=== PATIENT | male | born 1975 | race Caucasian/White ===

== ENCOUNTER 2021-05-17 09:54 | Emergency (ER) | payer MEDICARE, MEDICAID ==
[~2021-05-17] VITALS: Ht 175 cm; Wt 72.0 kg
[~2021-05-17 09:54] MED LIST: LORA10TA7 PO
--- NOTE | 2021-05-17 11:02 | ED Syncope ---
General Chief Complaint: Dizziness/Syncope Stated Complaint: SYNCOPE Nursing Triage Note: PT WAS AT THE [employer] AND PASSED OUT. PT DOES NOT REMEMBER PASSING OUT. PT IS A RESIDENT AT [facility] AND HAS A [employer]. Source of Information: Patient Exam Limitations: No Limitations History of Present Illness Date Seen by Provider: May 17, 2021 Time Seen by Provider: 10:59 Initial Comments To ER with c/o syncope. Pt reportedly walks all over [place] and was near the [employer] store when he had a witnessed syncopal episode. He does not recall it. Ems started IV, initiated IV fluids, and transported here. At the time of my exam patient states that he was just walking feeling fine when an ambulance showed up to pick him up. He begins laughing and states that he is not sure why he is here. He states he feels perfectly fine and has never been sick. He does not recall passing out. Timing/Prior Episodes: No Prior History Precipitating Factors: None Current Symptoms: Back to Normal Allergies and Home Medications Allergies Coded Allergies: No Known Drug Allergies (Unverified , 08/22/14) Home Medications Loratadine 10 Mg Tablet, 10 MG PO DAILY, (Reported) Patient Home Medication List Home Medication List Reviewed: Yes Review of Systems Constitutional: see HPI EENTM: see HPI Respiratory: no symptoms reported Cardiovascular: no symptoms reported Genitourinary: no symptoms reported Musculoskeletal: no symptoms reported Skin: no symptoms reported Psychiatric/Neurological: No Symptoms Reported Past Ytzzxth-Wqwcix-Uhasng Hx Patient Social History Smoking Status: Current Everyday Smoker Use of E-Cig and/or Vaping Toni: Never a User Substance use?: No Seasonal Allergies Seasonal Allergies: Yes Past Medical History Reproductive Disorders: No Physical Exam Vital Signs Vital Signs - First Documented 05/17/21 09:54 Temp 37.2 Pulse 73 Resp 16 B/P (MAP) 136/89 (105) Pulse Ox 100 O2 Delivery Room Air Capillary Refill : Less Than 3 Seconds Height, Weight, BMI Height: 5'9" Weight: 130lbs. oz. 58.400157ec; 23.00 BMI Method:Stated General Appearance: No Apparent Distress, WD/WN, Thin, Other (Alert and oriented, very pleasant, laughing and joking with me. Hemodynamically stable.) HEENT: PERRL/EOMI, TMs Normal Neck: Full Range of Motion, Normal Inspection Respiratory: Normal Breath Sounds, No Accessory Muscle Use, No Respiratory Distress Gastrointestinal: Normal Bowel Sounds, Non Tender, Soft Extremities: Normal Capillary Refill, Normal Inspection Neurologic/Psychiatric: Alert, Oriented x3 Cranial Nerves: Normal Hearing, Normal Speech, PERRL Coordination/Gait: Normal Gait Motor/Sensory: No Motor Deficit Skin: Normal Color, Warm/Dry Progress/Results/Core Measures Results/Orders Lab Results Laboratory Tests Test 05/17/21 11:01 Range/Units White Blood Count 6.9 4.3-11.0 10^3/uL Red Blood Count 5.29 4.30-5.52 10^6/uL Hemoglobin 16.0 13.3-17.7 g/dL Hematocrit 48 40-54 % Mean Corpuscular Volume 90 80-99 fL Mean Corpuscular Hemoglobin 30 25-34 pg Mean Corpuscular Hemoglobin Concent 34 32-36 g/dL Red Cell Distribution Width 13.4 10.0-14.5 % Platelet Count 151 130-400 10^3/uL Mean Platelet Volume 10.4 9.0-12.2 fL Immature Granulocyte % (Auto) 0 % Neutrophils (%) (Auto) 69 42-75 % Lymphocytes (%) (Auto) 20 12-44 % Monocytes (%) (Auto) 9 0-12 % Eosinophils (%) (Auto) 1 0-10 % Basophils (%) (Auto) 1 0-10 % Neutrophils # (Auto) 4.8 1.8-7.8 10^3/uL Lymphocytes # (Auto) 1.4 1.0-4.0 10^3/uL Monocytes # (Auto) 0.6 0.0-1.0 10^3/uL Eosinophils # (Auto) 0.1 0.0-0.3 10^3/uL Basophils # (Auto) 0.0 0.0-0.1 10^3/uL Immature Granulocyte # (Auto) 0.0 0.0-0.1 10^3/uL Sodium Level 140 135-145 MMOL/L Potassium Level 3.8 3.6-5.0 MMOL/L Chloride Level 106 98-107 MMOL/L Carbon Dioxide Level 26 21-32 MMOL/L Anion Gap 8 5-14 MMOL/L Blood Urea Nitrogen 4 L 7-18 MG/DL Creatinine 0.89 0.60-1.30 MG/DL Estimat Glomerular Filtration Rate 92 BUN/Creatinine Ratio 4 Glucose Level 83 70-105 MG/DL Calcium Level 9.1 8.5-10.1 MG/DL Corrected Calcium 9.2 8.5-10.1 MG/DL Total Bilirubin 0.7 0.1-1.0 MG/DL Aspartate Amino Transf (AST/SGOT) 14 5-34 U/L Alanine Aminotransferase (ALT/SGPT) 15 0-55 U/L Alkaline Phosphatase 82 40-136 U/L Total Protein 6.3 L 6.4-8.2 GM/DL Albumin 3.9 3.2-4.5 GM/DL My Orders Orders - DOMINIQUE NEWMAN APRN Cbc With Automated Diff (05/17/21 10:57) Comprehensive Metabolic Panel (05/17/21 10:57) Ua Culture If Indicated (05/17/21 10:57) Ed Iv/Invasive Line Start (05/17/21 10:57) Chest 1 View, Ap/Pa Only (05/17/21 10:57) Ct Head Wo (05/17/21 10:57) Ekg Tracing (05/17/21 10:57) Vital Signs/I&O 05/17/21 09:54 Temp 37.2 Pulse 73 Resp 16 B/P (MAP) 136/89 (105) Pulse Ox 100 O2 Delivery Room Air Blood Pressure Mean: 105 Diagnostic Imaging Diagonstic Imaging: Xray, CT Plain Films/CT/US/NM/MRI: chest Comments cxr clear. awaiting ct read. Reviewed: Reviewed by Me Departure Communication (Admissions) Family Conversation EKG shows sinus rhythm rate of [address] segment elevation or depression no ectopy NAME: LAURA SOLITARIO [facility] REC#: [id number] PT STATUS: REG ER : 1975 PHYSICIAN: DOMINIQUE NEWMAN APRN ADMIT DATE: 05/17/21/ER Draft Date of Exam:05/17/21 CT HEAD WO PROCEDURE: CT head without contrast. TECHNIQUE: Multiple contiguous axial images were obtained through the brain without the use of intravenous contrast. Auto Exposure Controls were utilized during the CT exam to meet ALARA standards for radiation dose reduction. INDICATION: Syncope. COMPARISON: Comparison is made with prior head CT from 08/22/2014. FINDINGS: The ventricles and sulci are within normal limits. No sulcal effacement or midline shift is identified. No acute intra-axial or extra-axial hemorrhage is detected. Cisterns are patent. Visualized paranasal sinuses are clear. IMPRESSION: No acute intracranial process is detected. Dictated on workstation # [id number] Dict: 05/17/21 1127 Trans: 05/17/21 1133 [id number] Interpreted by: SCOTTIE AVILES MD Electronically signed by: Impression Primary Impression: Syncope Disposition: 01 HOME, SELF-CARE Condition: Stable Departure-Patient Inst. Decision time for Depature: 11:02 Referrals: NO,LOCAL PHYSICIAN (PCP) Primary Care Physician Patient Instructions: Syncope (Fainting) (DC) DOMINIQUE NEWMAN SAP TRAINER May 17, 2021 11:02
[2021-05-17 11:04] LABS: BASOPHILS % (AUTO) 1 % (0-10); EOSINOPHILS # (AUTO) 0.1 10^3/uL (0.0-0.3); EOSINOPHILS % (AUTO) 1 % (0-10); HEMATOCRIT 48 % (40-54); LYMPHOCYTES # (AUTO) 1.4 10^3/uL (1.0-4.0); LYMPHOCYTES % (AUTO) 20 % (12-44); MEAN CORPUSCULAR HEMOGLOBIN 30 pg (25-34); MEAN CORPUSCULAR HGB CONC 34 g/dL (32-36); MEAN CORPUSCULAR VOLUME 90 fL (80-99); MEAN PLATELET VOLUME 10.4 fL (9.0-12.2); MONOCYTES # (AUTO) 0.6 10^3/uL (0.0-1.0); MONOCYTES % (AUTO) 9 % (0-12); NEUTROPHILS # (AUTO) 4.8 10^3/uL (1.8-7.8); NEUTROPHILS % (AUTO) 69 % (42-75); PLATELET COUNT 151 10^3/uL (130-400); WHITE BLOOD COUNT 6.9 10^3/uL (4.3-11.0)
[2021-05-17 11:07] LABS: ALBUMIN 3.9 GM/DL (3.2-4.5); POTASSIUM 3.8 MMOL/L (3.6-5.0)
[2021-05-17 11:08] LABS: CALCIUM 9.1 MG/DL (8.5-10.1)
[2021-05-17 11:09] LABS: TOTAL PROTEIN 6.3 GM/DL (6.4-8.2)
[2021-05-17 11:11] LABS: BILIRUBIN,TOTAL 0.7 MG/DL (0.1-1.0)
[2021-05-17 11:13] LABS: CREATININE SERUM 0.89 MG/DL (0.60-1.30)
--- NOTE | 2021-05-17 11:24 | Diagnostic Imaging Report ---
INDICATION: Passed out. COMPARISON: None. FINDINGS: A single view of the chest demonstrates clear lungs bilaterally. The heart is normal. There is no pneumothorax or effusion. The osseous structures are stable. IMPRESSION: Negative chest. Dictated by: Dictated on workstation # [id number]
--- NOTE | 2021-05-17 11:33 | Diagnostic Imaging Report ---
PROCEDURE: CT head without contrast. TECHNIQUE: Multiple contiguous axial images were obtained through the brain without the use of intravenous contrast. Auto Exposure Controls were utilized during the CT exam to meet ALARA standards for radiation dose reduction. INDICATION: Syncope. COMPARISON: Comparison is made with prior head CT from 08/22/2014. FINDINGS: The ventricles and sulci are within normal limits. No sulcal effacement or midline shift is identified. No acute intra-axial or extra-axial hemorrhage is detected. Cisterns are patent. Visualized paranasal sinuses are clear. IMPRESSION: No acute intracranial process is detected. Dictated by: Dictated on workstation # [id number]
[2021-05-17 12:35] VITALS: BP 125/83
== END 2021-05-17 12:32 | disposition home or self-care (01) ==
LOC: EDUNIT# 09:54 → ER 10:04
DX: R55 Syncope and collapse (principal); F17.200 Nicotine dependence, unspecified, uncomplicated
CPT/HCPCS: 36415; 70450; 71045; 80053; 85025; 93005

== ENCOUNTER 2023-03-15 17:10 | Emergency (ER) | payer MEDICARE, MEDICAID ==
[~2023-03-15] VITALS: Ht 175 cm; Wt 59.0 kg
[2023-03-15] MEDS ORDERED: NS IV 1000 ML 1,000 ML IV STA (17:42)
--- NOTE | 2023-03-15 17:47 | ED Neurological Problem ---
General Chief Complaint: Neurological Problems Stated Complaint: SEIZURE Nursing Triage Note: PT AMB TO [facility] 10 PT STATES HAD POSSIBLE SEIZURE TODAY AT APPROX 1600. REFUSED EMS TRANSPORT. BYSTANDER STATES PT UNRESPONSIVE, WEAK PULSE, AND HAND SHAKING. PT AT THIS X IS ALERT AND ORIENTED AT THIS X. HAS NO SEIZURE HX Source: patient Exam Limitations: no limitations History of Present Illness Date Seen by Provider: Mar 15, 2023 Time Seen by Provider: 17:44 Initial Comments Patient is a 47-year-old male who presents to the ED with a potential seizure. Around 4 PM patient was sitting in a chair at [facility]. Witness states patient was smoking a cigarette. Patient hand started shaking bilateral. Patient was unarousable. This lasted for about 5 minutes after calling his name several times. Patient had a week pulse. Patient became alert but was disoriented. EMS was contacted. States he had a similar episode 2 weeks ago lasting about the same amount of time. No known history of seizures. Patient on arrival has no current complaint. Denies headache, dizziness, visual changes, sore throat, chest pain, cough, shortness of breath, fever, chills, neck pain. No known cardiac history. Denies of any current medication. No recent travels. They denied of any diffuse body convulsions Allergies and Home Medications Allergies Coded Allergies: No Known Drug Allergies (Unverified , 08/22/14) Patient Home Medication List Home Medication List Reviewed: Yes Cephalexin (Cephalexin) 500 Mg Tablet, 500 MG PO BID Prescribed by: THIAGO WILSON on 03/15/231937 Loratadine (Loratadine) 10 Mg Tablet, 10 MG PO DAILY, (Reported) Entered as Reported by: CARMEN MORALES on 08/22/14 1151 Review of Systems Review of Systems Constitutional: No diaphoresis, No fever, No malaise, No weakness Eyes: Denies Blurred Vision, Denies Drainage, Denies Decreased Acuity Ears, Nose, Mouth, Throat: denies ear pain, denies ear discharge Respiratory: No cough, No dyspnea on exertion Cardiovascular: No chest pain, No edema Gastrointestinal: No abdominal pain, No diarrhea, No nausea, No vomiting Genitourinary: No decreased output, No discharge Musculoskeletal: No back pain, No joint pain Skin: No change in color, No change in hair/nails Psychiatric/Neurological: Other (seizure) All Other Systems Reviewed Negative Unless Noted: Yes Past Bybrjrg-Njrdte-Qgcqxv Hx Patient Social History Tobacco Use?: Yes Tobacco type used: Cigarettes Smoking Status: Current Everyday Smoker Substance use?: No Alcohol Use?: No Pt feels they are or have been: No Immunizations Up To Date First/Initial COVID19 Vaccinat: YES Second COVID19 Vaccination Tono: YES Third COVID19 Vaccination Date: YES Seasonal Allergies Seasonal Allergies: Yes Past Medical History Surgery/Hospitalization HX: NO MED HX Reproductive Disorders: No Physical Exam Vital Signs Vital Signs - First Documented 03/15/23 03/15/23 17:30 20:25 Temp 37.9 Pulse 75 Resp 18 B/P (MAP) 128/89 (102) Pulse Ox 97 O2 Delivery Room Air Capillary Refill : Less Than 3 Seconds Height, Weight, BMI Height: 5'9" Weight: 130lbs. oz. 58.767668xl; 19.00 BMI Method:Stated General Appearance: WD/WN, no apparent distress HEENT: PERRL/EOMI, normal ENT inspection, TMs normal, pharynx normal Neck: non-tender, full range of motion, supple Respiratory: chest non-tender, lungs clear, normal breath sounds, no respiratory distress, no accessory muscle use Cardiovascular: regular rate, rhythm, no edema, no gallop, no JVD Gastrointestinal: normal bowel sounds, non tender, soft, no organomegaly Back: normal inspection, no CVA tenderness, no vertebral tenderness Extremities: normal range of motion, non-tender, normal inspection, no pedal edema Neurologic/Psychiatric: frit mixer II-XII nml as tested, no motor/sensory deficits, alert, normal mood/affect, oriented x 3 Crainal Nerves: normal hearing, normal speech, PERRL Coordination/Gait: normal finger to nose, normal gait Motor/Sensory: no motor deficit, no sensory deficit Skin: normal color, warm/dry Focused Exam Lactate Level 03/15/23 17:50: Lactic Acid Level 1.07 Lactic Acid Level Laboratory Tests Test 03/15/23 17:50 Lactic Acid Level 1.07 MMOL/L (0.50-2.00) Progress/Results/Core Measures Results/Orders Lab Results Laboratory Tests Test 03/15/23 17:50 03/15/23 18:54 Range/Units White Blood Count 11.0 4.3-11.0 10^3/uL Red Blood Count 5.50 4.30-5.52 10^6/uL Hemoglobin 16.4 13.3-17.7 g/dL Hematocrit 48 40-54 % Mean Corpuscular Volume 87 80-99 fL Mean Corpuscular Hemoglobin 30 25-34 pg Mean Corpuscular Hemoglobin Concent 34 32-36 g/dL Red Cell Distribution Width 13.2 10.0-14.5 % Platelet Count 159 130-400 10^3/uL Mean Platelet Volume 9.8 9.0-12.2 fL Immature Granulocyte % (Auto) 0 % Neutrophils (%) (Auto) 77 H 42-75 % Lymphocytes (%) (Auto) 14 12-44 % Monocytes (%) (Auto) 6 0-12 % Eosinophils (%) (Auto) 1 0-10 % Basophils (%) (Auto) 1 0-10 % Neutrophils # (Auto) 8.5 H 1.8-7.8 10^3/uL Lymphocytes # (Auto) 1.6 1.0-4.0 10^3/uL Monocytes # (Auto) 0.7 0.0-1.0 10^3/uL Eosinophils # (Auto) 0.1 0.0-0.3 10^3/uL Basophils # (Auto) 0.1 0.0-0.1 10^3/uL Immature Granulocyte # (Auto) 0.0 0.0-0.1 10^3/uL Sodium Level 140 135-145 MMOL/L Potassium Level 3.8 3.6-5.0 MMOL/L Chloride Level 105 98-107 MMOL/L Carbon Dioxide Level 25 21-32 MMOL/L Anion Gap 10 5-14 MMOL/L Blood Urea Nitrogen 8 7-18 MG/DL Creatinine 0.85 0.60-1.30 MG/DL Estimat Glomerular Filtration Rate 107 BUN/Creatinine Ratio 9 Glucose Level 95 70-105 MG/DL Lactic Acid Level 1.07 0.50-2.00 MMOL/L Calcium Level 9.1 8.5-10.1 MG/DL Corrected Calcium 8.9 8.5-10.1 MG/DL Total Bilirubin 0.4 0.1-1.0 MG/DL Aspartate Amino Transf (AST/SGOT) 16 5-34 U/L Alanine Aminotransferase (ALT/SGPT) 14 0-55 U/L Alkaline Phosphatase 90 40-136 U/L Total Protein 6.8 6.4-8.2 GM/DL Albumin 4.2 3.2-4.5 GM/DL Lipase 18 8-78 U/L Urine Color YELLOW Urine Clarity CLOUDY Urine pH 6.0 5-9 Urine Specific [place] 1.020 1.016-1.022 Urine Protein NEGATIVE NEGATIVE Urine Glucose (UA) NEGATIVE NEGATIVE Urine Ketones NEGATIVE NEGATIVE Urine Nitrite POSITIVE H NEGATIVE Urine Bilirubin NEGATIVE NEGATIVE Urine Urobilinogen 0.2 < = 1.0 MG/DL Urine Leukocyte Esterase 2+ H NEGATIVE Urine RBC (Auto) NEGATIVE NEGATIVE Urine RBC NONE /HPF Urine WBC 25-50 H /HPF Urine Crystals NONE /LPF Urine Bacteria LARGE H /HPF Urine Casts NONE /LPF Urine Mucus NEGATIVE /LPF Urine Culture Indicated YES Urine Opiates Screen NEGATIVE NEGATIVE Urine Oxycodone Screen NEGATIVE NEGATIVE Urine Methadone Screen NEGATIVE NEGATIVE Urine Propoxyphene Screen NEGATIVE NEGATIVE Urine Barbiturates Screen NEGATIVE NEGATIVE Ur Tricyclic Antidepressants Screen NEGATIVE NEGATIVE Urine Phencyclidine Screen NEGATIVE NEGATIVE Urine Amphetamines Screen NEGATIVE NEGATIVE Urine Methamphetamines Screen NEGATIVE NEGATIVE Urine Benzodiazepines Screen NEGATIVE NEGATIVE Urine Cocaine Screen NEGATIVE NEGATIVE Urine Cannabinoids Screen NEGATIVE NEGATIVE My Orders Orders - DYLLAN HILL Cbc With Automated Diff (03/15/23 17:42) Comprehensive Metabolic Panel (03/15/23 17:42) Lipase (03/15/23 17:42) Lactic Acid Analyzer (03/15/23 17:42) Ekg Tracing (03/15/23 17:42) Ua Culture If Indicated (03/15/23 17:42) Drug Screen Stat (Urine) (03/15/23 17:42) Ns Iv 1000 Ml (Sodium Chloride 0.9%) (03/15/23 17:42) Ct Head Wo (03/15/23 17:47) Urine Culture (03/15/23 18:54) Vital Signs/I&O 03/15/23 03/15/23 17:30 20:25 Temp 37.9 37.9 Pulse 75 75 Resp 18 18 B/P (MAP) 128/89 (102) 102/66 Pulse Ox 97 O2 Delivery Room Air Blood Pressure Mean: 102 Comment Sinus rhythm, 72 bpm, QRS duration 92 MS, QTc 423 MS. Departure Communication (PCP) Reviewed previous ER visits, H&P, lab testing. History of seizure-like activity. He states last seizure 2 weeks ago very similar. Did not get evaluated. Similar like seizure to the day. Seizure last for 5 minutes. Witness states patient hands were shaking and was unresponsive. Noted weak pulse. EMS stated that patient appeared confused on arrival. Patient came to the ED by POV On arrival he is alert and orient x4. GCS 15. He has no current complaint. Denies history of seizures. Not currently on any type of medication. No known cardiac history. Denied of any prior chest pain before the seizure or current chest pain at this time. EKG, CT scan head General lab work was ordered. CT scan head was negative for bleed or or mass. EKG showed sinus rhythm without evidence of arrhythmia. CBC, CMP grossly unremarkable. Lactic acid was normal. Potential seizure but would suspect elevated lactic acid. Patient was observed here in the ED. No seizure-like activity. Patient urinalysis did test positive for UTI. Will cover with Keflex. Recommend no driving. Follow-up your PCP in 2 to 3 days for reevaluation of your symptoms. Patient vital signs stable. Does not appear toxic. No evidence of any strokelike symptoms. No focal neural deficits. Return precaution were discussed with patient and family. Further evaluation for syncope versus seizure-like activity. Impression Primary Impression: Seizure-like activity Disposition: 01 HOME, SELF-CARE Condition: Stable Departure-Patient Inst. Decision time for Depature: 19:37 Referrals: [facility] NO,LOCAL PHYSICIAN (PCP) Primary Care Physician Patient Instructions: Seizures, Adult ED Add. Discharge Instructions: Potential seizure but recommend following up with primary care physician for further evaluation outpatient neurology follow-up. Take antibiotics as prescribed for UTI. If any worsening symptoms return back to ED. All discharge instructions reviewed with patient and/or family. Voiced understanding. Scripts Cephalexin (Cephalexin) 500 Mg Tablet 500 MG PO BID for 7 Days, #14 TAB Prov: DYLLAN HILL 03/15/23 DYLLAN HILL Mar 15, 2023 17:47
[2023-03-15 17:58] LABS: BASOPHILS # (AUTO) 0.1 10^3/uL (0.0-0.1); BASOPHILS % (AUTO) 1 % (0-10); EOSINOPHILS # (AUTO) 0.1 10^3/uL (0.0-0.3); EOSINOPHILS % (AUTO) 1 % (0-10); HEMATOCRIT 48 % (40-54); HEMOGLOBIN 16.4 g/dL (13.3-17.7); LYMPHOCYTES # (AUTO) 1.6 10^3/uL (1.0-4.0); LYMPHOCYTES % (AUTO) 14 % (12-44); MEAN CORPUSCULAR HEMOGLOBIN 30 pg (25-34); MEAN CORPUSCULAR HGB CONC 34 g/dL (32-36); MEAN CORPUSCULAR VOLUME 87 fL (80-99); MEAN PLATELET VOLUME 9.8 fL (9.0-12.2); MONOCYTES # (AUTO) 0.7 10^3/uL (0.0-1.0); MONOCYTES % (AUTO) 6 % (0-12); NEUTROPHILS # (AUTO) 8.5 10^3/uL (1.8-7.8); NEUTROPHILS % (AUTO) 77 % (42-75); PLATELET COUNT 159 10^3/uL (130-400)
[2023-03-15 18:06] LABS: ALBUMIN 4.2 GM/DL (3.2-4.5)
[2023-03-15 18:07] LABS: POTASSIUM 3.8 MMOL/L (3.6-5.0)
[2023-03-15 18:08] LABS: CALCIUM 9.1 MG/DL (8.5-10.1)
[2023-03-15 18:09] LABS: TOTAL PROTEIN 6.8 GM/DL (6.4-8.2)
[2023-03-15 18:11] LABS: BILIRUBIN,TOTAL 0.4 MG/DL (0.1-1.0)
[2023-03-15 18:13] LABS: CREATININE SERUM 0.85 MG/DL (0.60-1.30)
--- NOTE | 2023-03-15 18:34 | Diagnostic Imaging Report ---
PROCEDURE: CT head without contrast. TECHNIQUE: Multiple contiguous axial images were obtained through the brain without the use of intravenous contrast. Auto Exposure Controls were utilized during the CT exam to meet ALARA standards for radiation dose reduction. INDICATION: Seizure. FINDINGS: There is no mass, shift of the midline or hemorrhage to suggest an acute intracranial abnormality. The normal tentorial blush is noted. The ventricles are not abnormally dilated and stable in size when compared to the prior CT head exam of 05/17/2021. The bone windows show no evidence for a fracture or for a destructive lesion. The orbits are symmetrical and within normal limits. There is now near complete opacification of the left maxillary antrum. The sinuses are otherwise generally clear. IMPRESSION: 1. There is no evidence for an acute intracranial abnormality. 2. If clinical concern regarding an underlying abnormality persists, then MRI would be recommended for further study. 3. There is severe left maxillary sinusitis. Dictated by: Dictated on workstation # [id number]
[2023-03-15 19:03] LABS: BILIRUBIN,URINE NEGATIVE (NEGATIVE); CLARITY,URINE CLOUDY; COLOR,URINE YELLOW; GLUCOSE, URINE (UA) NEGATIVE (NEGATIVE); KETONES,URINE NEGATIVE (NEGATIVE); LEUKOCYTE ESTERASE ,URINE 2+ (NEGATIVE); NITRITE,URINE POSITIVE (NEGATIVE); PROTEIN,URINE NEGATIVE (NEGATIVE)
[2023-03-15 19:10] LABS: BACTERIA,URINE LARGE /HPF; WBC,URINE 25-50 /HPF
[2023-03-15 19:14] LABS: AMPHETAMINE SCREEN, URINE NEGATIVE (NEGATIVE); BARBITURATE SCREEN URINE NEGATIVE (NEGATIVE); BENZODIAZEPINES SCREEN URINE NEGATIVE (NEGATIVE); CANNABINOID SCREEN, URINE NEGATIVE (NEGATIVE); COCAINE SCREEN URINE NEGATIVE (NEGATIVE); METHADONE STAT NEGATIVE (NEGATIVE); OPIATE SCREEN URINE NEGATIVE (NEGATIVE); OXYCODONE STAT NEGATIVE (NEGATIVE); PROPOXYPHENE STAT NEGATIVE (NEGATIVE); TRICYCLIC ANTIDEPRESSANTS SCRE NEGATIVE (NEGATIVE)
[2023-03-15] MEDS ORDERED: CEPH500T PO (19:38)
[2023-03-15 20:25] VITALS: BP 102/66
== END 2023-03-15 20:28 | disposition home or self-care (01) ==
LOC: EDUNIT# 17:10 → ER 17:12
DX: R25.8 Other abnormal involuntary movements (principal); R40.4 Transient alteration of awareness; F17.210 Nicotine dependence, cigarettes, uncomplicated
CPT/HCPCS: 36415; 70450; 80053; 80306; 81000; 83605; 83690; 85025; 87077; 87088; 93005

== ENCOUNTER 2023-07-10 00:03 | Emergency (ER) | payer MEDICARE, MEDICAID ==
[~2023-07-10] VITALS: Ht 175.2 cm; Wt 58.9 kg
[~2023-07-10 00:03] MED LIST changes: +CEPH500T PO; +SULF1TAB38 PO
[2023-07-10 00:18] LABS: BASOPHILS # (AUTO) 0.1 10^3/uL (0.0-0.1); BASOPHILS % (AUTO) 0 % (0-10); EOSINOPHILS # (AUTO) 0.1 10^3/uL (0.0-0.3); EOSINOPHILS % (AUTO) 1 % (0-10); HEMATOCRIT 46 % (40-54); HEMOGLOBIN 15.6 g/dL (13.3-17.7); LYMPHOCYTES # (AUTO) 1.3 10^3/uL (1.0-4.0); LYMPHOCYTES % (AUTO) 11 % (12-44); MEAN CORPUSCULAR HEMOGLOBIN 30 pg (25-34); MEAN CORPUSCULAR HGB CONC 34 g/dL (32-36); MEAN CORPUSCULAR VOLUME 90 fL (80-99); MEAN PLATELET VOLUME 9.9 fL (9.0-12.2); MONOCYTES # (AUTO) 0.9 10^3/uL (0.0-1.0); MONOCYTES % (AUTO) 7 % (0-12); NEUTROPHILS # (AUTO) 9.8 10^3/uL (1.8-7.8); NEUTROPHILS % (AUTO) 80 % (42-75); PLATELET COUNT 162 10^3/uL (130-400); WHITE BLOOD COUNT 12.3 10^3/uL (4.3-11.0)
[2023-07-10 00:29] LABS: ALBUMIN 4.3 GM/DL (3.2-4.5); CHLORIDE 103 MMOL/L (98-107); POTASSIUM 3.9 MMOL/L (3.6-5.0); SODIUM 139 MMOL/L (135-145)
[2023-07-10 00:30] LABS: CALCIUM 9.2 MG/DL (8.5-10.1)
[2023-07-10 00:31] LABS: GLUCOSE 104 MG/DL (70-105); TOTAL PROTEIN 6.9 GM/DL (6.4-8.2)
[2023-07-10 00:32] LABS: CARBON DIOXIDE 24 MMOL/L (21-32)
[2023-07-10 00:33] LABS: BILIRUBIN,TOTAL 1.1 MG/DL (0.1-1.0)
[2023-07-10 00:35] LABS: ALKALINE PHOSPHATASE 90 U/L (40-136); CREATININE SERUM 0.95 MG/DL (0.60-1.30); GFR ESTIMATED 98
[2023-07-10 00:36] LABS: BUN/CREATININE RATIO 7
[2023-07-10 00:38] LABS: ALANINE AMINOTRANSFERASE 14 U/L (0-55)
--- NOTE | 2023-07-10 00:50 | ED Head Injury ---
General Chief Complaint: Trauma-Non Activation Stated Complaint: FALL W/LOC Nursing Triage Note: PT TO RM 3 BY EMS WITH CC OF FALL WITH + LOC AT APPROX 2326. UNK TIME OF LOC. PT IS UNABLE TO RECALL THE EVENT PRIOR TO THE FALL AND AFTER THE FALL. EMS RPORTS ALDAIR OF 79. PT ORIENTED TO PERSON, PLACE AND SITUATION BUT NOT TIME. ABRASION NOTED TO PT NOSE AND CONTROLLED NOSE BLEED AT TIME OF TRIAGE. Source: patient Exam Limitations: no limitations History of Present Illness Date Seen by Provider: Jul 10, 2023 Time Seen by Provider: 00:04 Initial Comments This 47-year-old gentleman presents to the emergency room via EMS with facial injuries after suffering a fall. EMS reports patient's girlfriend witnessed the incident and was the primary historian. They were apparently walking when he stopped and had a blank stare. He then proceeded to collapse and strike his face. He has swelling and abrasions or shallow lacerations on the nose as well as abrasions on the dorsal aspect of both hands. He has some slow epistaxis on arrival. He denies any pain. He is alert and conversational. Patient denies having any prior episodes of syncope or seizure. However, on review of his chart numerous episodes have been documented previously resulting in multiple ER visits. Patient later did admit to these prior episodes. He has never been treated for seizure although his symptoms seem to be consistent with seizure activity. He has had documentation of tremoring type movements prior to or during the episodes. For example during 1 episode he was noted to have flickering of the eyelids. During another episode he was noted to have tremoring of the bilateral upper extremities. No convulsions were specifically described during this episode, but his girlfriend is not here to give report. Patient denies any prodrome or current symptoms of lightheadedness, dizziness, chest pain, shortness of breath, or other associated symptoms. Review of chart reveals that he had an EEG done in 2013 which was negative. Patient smokes but denies any drug or alcohol use. Patient was noted to have UTI which was treated on prior visit. He reports he was previously seeing Marlen Ramsey in [facility] for primary health care. He is not presently seeing any other provider since Dr. Ramsey went to work full-time and wound care. Patient has mild intellectual disability and lives in the [facility]. He has a house builder who helps manage his financial affairs by the name of Audra Cervantes. Allergies and Home Medications Allergies Coded Allergies: No Known Drug Allergies (Unverified , 08/22/14) Patient Home Medication List Home Medication List Reviewed: Yes Levetiracetam (Keppra) 500 Mg Tablet, 500 MG PO BID Prescribed by: NORMA BLANKENSHIP on 07/10/23 0309 Loratadine (Loratadine) 10 Mg Tablet, 10 MG PO DAILY, (Reported) Entered as Reported by: CARMEN MORALES on 08/22/14 1151 Sulfamethoxazole/Trimethoprim (Bactrim Ds Tablet) 1 Each Tablet, 1 EACH PO BID Prescribed by: HILARY ANDERS on 03/25/23 1013 Review of Systems Review of Systems Constitutional: no symptoms reported Eyes: No Symptoms Reported Ears, Nose, Mouth, Throat: see HPI Respiratory: no symptoms reported Cardiovascular: no symptoms reported Gastrointestinal: no symptoms reported Genitourinary: see HPI Musculoskeletal: no symptoms reported Skin: see HPI Psychiatric/Neurological: See HPI Endocrine: No Symptoms Reported Hematologic/Lymphatic: No Symptoms Reported Past Mxliiec-Giktfm-[id number] Hx Patient Social History Tobacco Use?: Yes Tobacco type used: Cigarettes Smoking Status: Current Everyday Smoker Substance use?: No Alcohol Use?: No Immunizations Up To Date First/Initial COVID19 Vaccinat: YES Second COVID19 Vaccination Tono: YES Third COVID19 Vaccination Date: YES Seasonal Allergies Seasonal Allergies: Yes Past Medical History Surgery/Hospitalization HX: NO MED HX Surgeries: No Respiratory: No Cardiac: Yes (Possible history of syncopal episode) Neurological: Yes (Mild intellectual disability) Seizure Disorder (Possible history of seizure episodes) Reproductive Disorders: No Genitourinary: No Gastrointestinal: No Musculoskeletal: No Endocrine: No HEENT: No Cancer: No Psychosocial: No Integumentary: No Physical Exam Vital Signs Vital Signs - First Documented 07/10/23 00:03 Temp 36.6 Pulse 78 Resp 16 B/P (MAP) 132/87 (102) Pulse Ox 98 O2 Delivery Room Air Capillary Refill : Less Than 3 Seconds Height, Weight, BMI Height: 5'9" Weight: 130lbs. oz. [id number]; 19.00 BMI Method:Stated General Appearance: WD/WN, no apparent distress HEENT: PERRL/EOMI, TMs normal, pharynx normal, other (Abrasions and shallow lacerations on the nose. Nasal edema noted. Oozing epistaxis. No septal hematoma. No significant tenderness across the face. No septal hematoma) Neck: non-tender, normal inspection Cardiovascular: regular rate, rhythm, no edema, no murmur Respiratory: lungs clear, normal breath sounds, no respiratory distress Gastrointestinal: normal bowel sounds, non tender, soft Extremities: no pedal edema, other (Abrasions across the dorsum of both hands with no significant tenderness) Psychiatric: alert, oriented x 3 Crainal Nerves: normal hearing, normal speech, PERRL Motor/Sensory: no motor deficit, no sensory deficit Skin: normal color, warm/dry, other (Multiple abrasions) Kiersten Coma Score Best Eye Response: (4) Open Spontaneously Best Verbal Response: (5) Oriented Best Motor Response: (6) Obeys Commands Kiersten Total: 15 Progress/Results/Core Measures Results/Orders Lab Results Laboratory Tests Test 07/10/23 00:08 07/10/23 01:48 Range/Units White Blood Count 12.3 H 4.3-11.0 10^3/uL Red Blood Count 5.15 4.30-5.52 10^6/uL Hemoglobin 15.6 13.3-17.7 g/dL Hematocrit 46 40-54 % Mean Corpuscular Volume 90 80-99 fL Mean Corpuscular Hemoglobin 30 25-34 pg Mean Corpuscular Hemoglobin Concent 34 32-36 g/dL Red Cell Distribution Width 13.1 10.0-14.5 % Platelet Count 162 130-400 10^3/uL Mean Platelet Volume 9.9 9.0-12.2 fL Immature Granulocyte % (Auto) 0 % Neutrophils (%) (Auto) 80 H 42-75 % Lymphocytes (%) (Auto) 11 L 12-44 % Monocytes (%) (Auto) 7 0-12 % Eosinophils (%) (Auto) 1 0-10 % Basophils (%) (Auto) 0 0-10 % Neutrophils # (Auto) 9.8 H 1.8-7.8 10^3/uL Lymphocytes # (Auto) 1.3 1.0-4.0 10^3/uL Monocytes # (Auto) 0.9 0.0-1.0 10^3/uL Eosinophils # (Auto) 0.1 0.0-0.3 10^3/uL Basophils # (Auto) 0.1 0.0-0.1 10^3/uL Immature Granulocyte # (Auto) 0.0 0.0-0.1 10^3/uL Sodium Level 139 135-145 MMOL/L Potassium Level 3.9 3.6-5.0 MMOL/L Chloride Level 103 98-107 MMOL/L Carbon Dioxide Level 24 21-32 MMOL/L Anion Gap 12 5-14 MMOL/L Blood Urea Nitrogen 7 7-18 MG/DL Creatinine 0.95 0.60-1.30 MG/DL Estimat Glomerular Filtration Rate 98 BUN/Creatinine Ratio 7 Glucose Level 104 70-105 MG/DL Glucometer 105 70-110 MG/DL Calcium Level 9.2 8.5-10.1 MG/DL Corrected Calcium 9.0 8.5-10.1 MG/DL Magnesium Level 2.0 1.6-2.4 MG/DL Total Bilirubin 1.1 H 0.1-1.0 MG/DL Aspartate Amino Transf (AST/SGOT) 21 5-34 U/L Alanine Aminotransferase (ALT/SGPT) 14 0-55 U/L Alkaline Phosphatase 90 40-136 U/L Total Protein 6.9 6.4-8.2 GM/DL Albumin 4.3 3.2-4.5 GM/DL Serum Alcohol < 10 <10 MG/DL Urine Color YELLOW Urine Clarity CLEAR Urine pH 6.0 5-9 Urine Specific Gilbert 1.015 L 1.016-1.022 Urine Protein NEGATIVE NEGATIVE Urine Glucose (UA) NEGATIVE NEGATIVE Urine Ketones 1+ H NEGATIVE Urine Nitrite NEGATIVE NEGATIVE Urine Bilirubin NEGATIVE NEGATIVE Urine Urobilinogen 0.2 < = 1.0 MG/DL Urine Leukocyte Esterase NEGATIVE NEGATIVE Urine RBC (Auto) NEGATIVE NEGATIVE Urine RBC NONE /HPF Urine WBC NONE /HPF Urine Crystals NONE /LPF Urine Bacteria NEGATIVE /HPF Urine Casts NONE /LPF Urine Mucus NEGATIVE /LPF Urine Culture Indicated NO Urine Opiates Screen NEGATIVE NEGATIVE Urine Oxycodone Screen NEGATIVE NEGATIVE Urine Methadone Screen NEGATIVE NEGATIVE Urine Propoxyphene Screen NEGATIVE NEGATIVE Urine Barbiturates Screen NEGATIVE NEGATIVE Ur Tricyclic Antidepressants Screen NEGATIVE NEGATIVE Urine Phencyclidine Screen NEGATIVE NEGATIVE Urine Amphetamines Screen NEGATIVE NEGATIVE Urine Methamphetamines Screen NEGATIVE NEGATIVE Urine Benzodiazepines Screen NEGATIVE NEGATIVE Urine Cocaine Screen NEGATIVE NEGATIVE Urine Cannabinoids Screen NEGATIVE NEGATIVE My Orders Orders - BRUEGGEMANN,NORMA T MD Ct Head/Face/Cervical Wo (07/10/23 00:08) Ed Iv/Invasive Line Start (07/10/23 00:08) Ekg Tracing (07/10/23 00:08) Monitor-Rhythm Ecg Trace Only (07/10/23 00:08) Alcohol (07/10/23 00:08) Cbc And Automated Diff (07/10/23 00:08) Comprehensive Metabolic Panel (07/10/23 00:08) Drug Screen Stat (Urine) (07/10/23 00:08) Magnesium (07/10/23 00:08) Ua Culture If Indicated (07/10/23 00:08) Levetiracetam Tablet (Levetiracetam Tabl (07/10/23 01:15) Dipht/Pertuss(Acell)/Tet Adult (Dipht/Pe (07/10/23 01:15) Medications Given in ED Current Medications Medications Dose Ordered Sig/Jenaro Route Start Time Stop Time Status Last Admin Dose Admin Diphtheria/ Tetanus/Acell Pertussis 0.5 ml ONCE ONCE IM 07/10/23 01:15 07/10/23 01:16 DC 07/10/23 01:53 0.5 ML Levetiracetam 500 mg ONCE ONCE PO 07/10/23 01:15 07/10/23 01:16 DC 07/10/23 01:52 500 MG Vital Signs/I&O 07/10/23 07/10/23 00:03 03:21 Temp 36.6 Pulse 78 Resp 16 B/P (MAP) 132/87 (102) 110/75 Pulse Ox 98 O2 Delivery Room Air Blood Pressure Mean: 102 Progress Progress Note : Progress Note Labs were obtained and interpreted by me. CBC was notable for WBC of 12.3 but was otherwise normal. FSBS was 105. CMP was unremarkable. UA demonstrated 1+ ketones. Toxicology screen was negative. CT of head, face, and c-spine demonstrated questionable nasal fracture which did not correlate with pain or tenderness. In context of clinical history and documentation of prior episodes, the event seems likely to be seizure related. Patient was offered Keppra which he accepted. Tetanus booster was administered. See discharge instructions for further discussion. Initial ECG Impression Date: Jul 10, 2023 Initial ECG Impression Time: 00:29 Initial ECG Rate: 76 Initial ECG Rhythm: Normal Sinus Comment Sinus rhythm with no ST elevation or depression. No significant abnormal intervals or axis deviation. VT interval noted to be mildly shortened at 110 ms. Diagnostic Imaging Diagonstic Imaging: CT Plain Films/CT/US/NM/MRI: facial bones, c-spine, head Comments CT head, face, and cervical spine reviewed by me. No acute abnormalities were definitively appreciated on my interpretation other than air in the soft tissues of the nose. Radiologist's [employer] report was reviewed. There was suspicion of left maxillary fracture at the nasal base. This was slightly angulated and not displaced. True fracture is questionable as patient denies pain or tenderness in this area. Departure Impression Primary Impression: Seizure-like activity Additional Impressions: Syncope and collapse Multiple abrasions Facial contusion Qualified Codes: S00.83XA - Contusion of other part of head, initial e ncounter Disposition: 01 HOME, SELF-CARE Condition: Improved Departure-Patient Inst. Decision time for Depature: 03:07 Referrals: NO,LOCAL PHYSICIAN (PCP/Family) Primary Care Physician Patient Instructions: Syncope (fainting), Seizures, Adult ED Add. Discharge Instructions: Follow-up with your primary care offices soon as possible. Please call later today to make an appointment. Until then, continue Keppra to prevent further seizures. Do not drive or operate machinery or do any other activity that could be dangerous if you had another episode of unresponsiveness. Such activities might include swimming, using heights such as ladders, etc. You may take Tylenol (acetaminophen) up to 1000 mg every 6 hours as needed and/or ibuprofen up to 600 mg every 6 hours as needed for pain. Return to the emergency room if you have worsening symptoms despite following these instructions. All discharge instructions reviewed with patient and/or family. Voiced understanding. Scripts Levetiracetam (Keppra) 500 Mg Tablet 500 MG PO BID, #60 TAB Prov: NORMA SARAVIA MD 07/10/23 NORMA SARAVIA MD Jul 10, 2023 00:49
[2023-07-10] MEDS ORDERED: Tetanus/Diphtheria/Pertussis (Acell) ADULT Vaccine 0.5 ML IM ONE (01:15)
[2023-07-10] MEDS ORDERED: LevETIRAcetam 500 MG TABLET PO ONE (01:15)
[2023-07-10 02:05] LABS: AMPHETAMINE SCREEN, URINE NEGATIVE (NEGATIVE); BARBITURATE SCREEN URINE NEGATIVE (NEGATIVE); CANNABINOID SCREEN, URINE NEGATIVE (NEGATIVE); COCAINE SCREEN URINE NEGATIVE (NEGATIVE); METHADONE STAT NEGATIVE (NEGATIVE); OPIATE SCREEN URINE NEGATIVE (NEGATIVE); OXYCODONE STAT NEGATIVE (NEGATIVE); PROPOXYPHENE STAT NEGATIVE (NEGATIVE); TRICYCLIC ANTIDEPRESSANTS SCRE NEGATIVE (NEGATIVE)
[2023-07-10 02:06] LABS: BACTERIA,URINE NEGATIVE /HPF; BILIRUBIN,URINE NEGATIVE (NEGATIVE); CLARITY,URINE CLEAR; COLOR,URINE YELLOW; GLUCOSE, URINE (UA) NEGATIVE (NEGATIVE); KETONES,URINE 1+ (NEGATIVE); LEUKOCYTE ESTERASE ,URINE NEGATIVE (NEGATIVE); NITRITE,URINE NEGATIVE (NEGATIVE); PROTEIN,URINE NEGATIVE (NEGATIVE)
[2023-07-10] MEDS ORDERED: LEVE500T99 PO (03:09)
[2023-07-10 03:21] VITALS: BP 110/75
--- NOTE | 2023-07-10 08:25 | Diagnostic Imaging Report ---
PROCEDURE: CT head, face, and cervical spine without contrast. TECHNIQUE: Multiple contiguous axial images were obtained through the head, neck, and facial bones without the use of intravenous contrast. Sagittal and coronal reformations through the cervical spine and facial bones were also performed. Auto Exposure Controls were utilized during the CT exam to meet ALARA standards for radiation dose reduction. INDICATION: Fall with head, face and cervical spine pain and injuries. Comparison is made with prior head CT from 03/15/2023. CT head: The ventricles and sulci are within normal limits. No sulcal effacement or midline shift is identified. No acute intra-axial or extra-axial hemorrhage is detected. Cisterns are patent. The visualized paranasal sinuses are clear. IMPRESSION: No acute intracranial process is identified. CT cervical spine: Alignment is normal. There is some degenerative disc disease at C6-C7 level with disc space narrowing and marginal spurring. No fractures are seen. Prevertebral tissues are within normal limits. Odontoid is intact. IMPRESSION: No acute bony abnormality is detected. CT face: The mandible is intact. Zygomatic arches are intact. Maxillary sinus marquez appear intact. There does appear to be a slightly angulated fracture of the left frontal process at the base of the nose with overlying nasal soft tissue swelling and soft tissue gas consistent with laceration. Orbital marquez are intact. Nasal bones appear to be intact. Nasal septum is intact. Paranasal sinuses appear clear. Mastoids are well aerated. IMPRESSION: There is a fracture of the left frontal process of the maxilla with overlying nasal soft tissue swelling and soft tissue gas. No other facial bone fracture is detected. Dictated by: Dictated on workstation # [id number]
== END 2023-07-10 03:22 | disposition home or self-care (01) ==
LOC: EDUNIT# 00:03 → ER 00:04
DX: S01.21XA Laceration without foreign body of nose, initial encounter (principal); S60.512A Abrasion of left hand, initial encounter; S60.511A Abrasion of right hand, initial encounter; R55 Syncope and collapse; R25.9 Unspecified abnormal involuntary movements; F17.210 Nicotine dependence, cigarettes, uncomplicated; Z23 Encounter for immunization; W19.XXXA Unspecified fall, initial encounter; W22.8XXA Striking against or struck by other objects, initial encounter
CPT/HCPCS: 36415; 70450; 70486; 72125; 80053; 80306; 80320; 81000; 82947; 83735; 85025; 90471; 90715; 93005; 93041